=== PATIENT | female | born 1960 | race Caucasian/White ===

== ENCOUNTER 2016-12-04 07:00 | Day surgery (SDC) | payer OTHER ==
[2016-12-04] VITALS (12 sets, daily range): BP systolic 112–128; BP diastolic 67–82; PULSE 74–88; RESP 13–17; O2SAT 93–96
[~2016-12-04] VITALS: Ht 154.9 cm; Wt 83.7 kg
[~2016-12-04 07:00] MED LIST: ASCO-294 PO; BUPR150T12 PO; CALCIUM, MAG, ZINC PO; CHOL200025 PO; CeFAZolin Inj 2 GM in IV Premix 1 EACH IV ONE; FURO-129 PO; LORA10CA PO; Lactated Ringer's 1,000 ML IV ONE; MULT-1018 PO
--- NOTE | 2016-12-04 07:25 | PCM.HPANE ---
Patient Data Date of Service: Dec 04, 2016 Surgeon Admitting Provider: Attending Provider:Albert Alonzo MD Primary Care Physician:Frankie Paul DO Other Provider:Gely Ball Anesthesia Reason for Visit Malignant Ascites Ht/WT & BMI Height (Feet): 5 Height (Inches): 1.00 Weight (Kilograms): 83.7 Body Mass Index 34.00 Allergies Coded Allergies: No Known Drug Allergies (Verified Allergy, Unknown, 12/03/16) Past Anesthesia History Anesthesia History: Denies:: Abnormal Airway, Anesthesia Reactions, Difficult Intubation, Fam Anesthesia Reaction, Fam Malignant Hypertherm, Malignant Hyperthermia Diabetes History Hx Diabetes?: No MRSA MRSA: No Medications Home Meds Incl Beta Harshal: No Reported Medications Furosemide (Lasix)20 Mg Qacmle47 Mg PO BID PRN prn 30 Days Ref 0 12/03/16 Cholecalciferol (Vitamin D3) (Vitamin D3)2,000 Unit Tablet2,000 Unit PO DAILY 12/02/16 [Calcium, Mag, Zinc] No Conflict Check1 Tab PO DAILY 12/02/16 Bupropion ER 150 Mg Tablet.er150 Mg PO DAILY Ref 0 11/25/16 Loratadine (Claritin)10 Mg Snppldm72 Mg PO DAILY Ref 0 11/26/15 Discontinued Reported Medications Ascorbate Calcium (Vitamin C)500 Mg Sieifa102 Mg PO DAILY 12/03/16 Multivitamin (Multi Vitamin Daily)1 Each Tablet1 Each PO DAILY 30 Days Ref 0 12/03/16 Cyanocobalamin (Vitamin B-12) (Vitamin B12)5,000 Mcg Tab.rapdis5,000 Mcg PO OCC 12/02/16 [Vitamin B12] No Conflict Check1 Tab SL Daily 11/25/16 [Calcium ] No Conflict Check1 Tab PO DAILY 11/25/16 Fluticasone Propionate (Flonase Allergy Relief)50 Mcg/Actuation [place].susp9.9 Ml NS 11/26/15 Multivitamin (Multivitamins)1 Each Capsule1 Each PO 11/26/15 History History of ENT Problems?: Yes HEENT History: Positive for:: Sinus Problem (SEASONAL ALLERGIES) Denies:: Abnormal Airway Difficult Intubation Dysphagia Hearing Problem Hx of Heart Problems?: No Cardiovascular History: Denies:: AICD Atrial Fibrillation Chest Pain Heart Murmur Hypertension Pacemaker Rheumatic Fever Thrombophlebitis Hx of Respiratory Problem?: Yes Respiratory History: Positive for:: Asthma (CHILDHOOD) Dyspnea Use of C-PAP Machine (MILDLY CHRISTIANO+ AWAITING CPAP SLEEP STUDY 01/2016) Denies:: COPD Cough Emphysema Hemoptysis Pneumonia Tuberculosis Hx Neurologic Problems?: Yes Neurological History: Denies:: Alzheimer's Disease CVA Dementia Dizziness Headaches Seizures Hx of GI Problems?: Yes Gastrointestinal History: Positive for:: Heartburn Denies:: Cirrhosis Diverticulitis Gastroesphageal Reflux Hepatitis Hiatal Hernia Rectal Bleeding Other GI Pertinent History: MALIGNANT ASCITES=CURRENT PROBLEM HX OF PARACENTSIS X3-4 IN LAST 1-2 MONTHS (3.5L REMOVED W/ 1ST PROCEDURE) Hx of Problems?: No Genitourinary History: Denies:: HX of Hemodialysis Kidney Stones Urinary Tract Infection Female Hx: Positive for:: Problems with Breasts? (S/P LT BREAST PARTIAL MASTECTOMY FOR CA) Denies:: Currently (LAST MENSES 14 MONTHS AGO) Endometriosis Pelvic Inflammatory Skin History: Denies:: History Skin Disorders? Pressure Ulcers Hx Musculoskeletal Problems?: Yes Musculoskeletal History: Positive for:: Musculoskeletal Trauma (HX RT ELBOW INJURY) Denies:: Back Injury Joint Replacement Hx of Psycho/Social Problems?: Yes Psycho Social History: Positive for:: Hx Depression Denies:: Anxiety Bipolar Disorder Hx Surgeries?: Yes (PARACENTESIS (MULT.),D&C,LT BREAST PARTIAL MASTECTOMY) Hx Any Other Health Problems?: Yes Other History: Positive for:: Cancer (LEFT BREAST CA 2006) Hospitalization Denies:: Endocrine Disease Thyroid Disease (??HX OF) History Blood Transfusions: Denies:: Blood Transfusions Hx Diabetes: No Hx Alcohol Use: NoHx Substance Use: No Smoking Status: Never Smoker Have You Smoked inLast 12 mo: No Stop/Bang S-Snoring: Do You Snore Loudly: No T-Tired: feel tired, fatigued: Yes O-Obsered: Observed not breath: Yes P-Blood Pressure: treated: No B- Body Mass Index > 35 kg/m2: No A- Age over 50: Yes N- Neck Large Circumference: No G- Gender Male: No CHRISTIANO Total Score: 3 CHRISTIANO Category 4 OutPt Procedure: Yes Risk Assessment Category Category 1A: Patient has history of documented sleep apnea, and HAS NOT received any narcotic, sedative or anesthesia administration during this stay. Category 1B: Patient has history of documented sleep apnea, and HAS received any narcotic , sedative or anesthesia administration during this stay Category 2: Patient has SUSPECTED Obstructive Sleep Apnea, and HAS received any narcotic , sedative or anesthesia administration during this stay. Category 3: Patient has SUSPECTED Obstructive Sleep Apnea and HAS NOT received narcotic, sedative or anesthesia administration during this stay. Category 4: Outpatient in Procedural Areas with known sleep apnea or who screen positive for High Risk via the STOP/BANG questionnaire. Exam Exam Vital Signs Vital Signs Date Time Temp Pulse Resp B/P Pulse Ox O2 Delivery O2 Flow Rate FiO2 12/04/16 05:56 35.7 77 14 128/82 95 Room Air General Appearance: Alert, Oriented X3, Cooperative, No Acute Distress HEENT/AIRWAY: MP 2 Lungs: Clear to Auscultation, Normal Air Movement Heart: Exam Unremarkable, Regular Rate/Rhythm, No Murmurs/Rubs/Gallops Meds/Labs/Diagnostics Admission Meds Current Medications Lactated Ringer's (Lr) 1,000 ml @ ud STK-MED ONCE IV Last administered on 12/04t 06:18; Start 12/04/16 at 06:18; Stop 12/04/16 at 06:19; Status DC Plan Impression Patient chart reviewed, patient interviewed and anesthestic plan with risks, benefits, and alternatives discussed, and informed consent obtained. NPO Status: 12/03@1800, SIP OF WATER 2200 ASA Physical Status: ASA3 Severe Disease Anesthetic Plan: GA Bene/Risks/Altern/Consents: Yes HP Complete Prior to Induction: Yes Aeb Mera MD Dec 04, 2016 07:25
[2016-12-04] MEDS ORDERED: Bupivacaine-MPF 0.5% 30 mL Inj INFILTRATE ONE (07:31)
[2016-12-04] MEDS ORDERED: HYDROmorphone 1 mg/mL Inj IVPUSH PRN (08:00)
[2016-12-04] MEDS ORDERED: Lactated Ringer's 1,000 ML IV SCH (08:00)
[2016-12-04] MEDS ORDERED: MetoCLOpramide 5 mg/mL 2 mL Inj IVPUSH PRN (08:00)
[2016-12-04] MEDS ORDERED: Phenylephrine 10,000 mCg/mL Inj IVPUSH PRN (08:00)
[2016-12-04] MEDS ORDERED: hydrALAZINE 20 mg/mL Inj IVPUSH PRN (08:00)
[2016-12-04] MEDS ORDERED: EPHEDrine Sulfate 50 mg/mL Inj IVPUSH PRN (08:00)
[2016-12-04] MEDS ORDERED: fentaNYL-PF 50 mCg/mL 2 mL Inj IVPUSH PRN (08:00)
[2016-12-04] MEDS ORDERED: Atropine 0.4 mg/mL Inj IVPUSH PRN (08:00)
[2016-12-04] MEDS ORDERED: Lactated Ringer's 500 ML IV PRN (08:00)
[2016-12-04] MEDS ORDERED: Labetalol 5 mg/mL 4 mL Inj IV PRN (08:00)
[2016-12-04] MEDS ORDERED: Ondansetron 2 mg/mL 2 mL Inj IVPUSH PRN (08:00)
[2016-12-04] MEDS ORDERED: Ondansetron 2 mg/mL 2 mL Inj ONE (09:02)
[2016-12-04] MEDS ORDERED: Propofol 10,000 mCg/mL 20 mL Inj ONE (09:02)
[2016-12-04] MEDS ORDERED: fentaNYL-PF 50 mCg/mL 2 mL Inj ONE (09:02)
[2016-12-04] MEDS ORDERED: Lidocaine PF 1% 30 mL Inj ONE (09:02)
[2016-12-04] MEDS ORDERED: Rocuronium 10 mg/mL 5 mL Inj ONE (09:02)
[2016-12-04] MEDS ORDERED: Dexamethasone 4 mg/mL Inj ONE (09:02)
--- NOTE | 2016-12-04 10:11 | PCM.ANEP1 ---
Post Anesthesia Phase 1 PACU Phase 1 Assessment Date of Service: Dec 04, 2016 Vital Signs 36.2 123/71 88 15 96% RA Anesthetic Administered: GA Level of Alertness: Sleepy, easy to arouse CABRAL's with Equal Strength: Yes Pain: No Nausea or Vomiting: No Oxygen Delivery: Room Air Lungs: Clear to Auscultation, Normal Air Movement Abe Mera MD Dec 04, 2016 10:11
--- NOTE | 2016-12-04 10:24 | PCM.SURGPO ---
Immediate Operative Note Date of Surgery: Dec 04, 2016 Pre Operative Diagnosis Malignant ascites Post Operative Diagnosis Peritoneal Carcinomatosis, Omental caking Procedure Diagnostic laparoscopy with biopsies Tunneled L Subclavian catheter placement with port, Fluoroscopy Surgeon and Vaccine Customer Representative Surgeon: Albert Alonzo MD Vaccine Customer Representative: Findings Carcinomatosis - pelvis, dome of the diaphragm etx. Omental caking Complications There were no periprocedural complications identified. Surgical Specimen Removed: Yes Specimen sent to Pathology: Yes Anesthetic Administered: GA Grafts, Implants: Implants-See Implant Record Output, Estimated Blood Loss: 5 Blood Admin during surgery: No Attending Statement Laboratory Specialist listed was medically necessary for the successful completion of the operation Albert Alonzo MD Dec 04, 2016 10:24
--- NOTE | 2016-12-04 13:19 | DRSVH ---
PROCEDURE: X-RAY CHEST ONE VIEW, PORTABLE ([id number]) INDICATIONS: Port Placement TECHNIQUE: One view of the chest was acquired. COMPARISON: [facility], , [place] GUIDED PARACENTESIS, 11/25/2016, 13:09. FINDINGS: Surgical changes and devices: Left chest port has been placed tip projected over the lower SVC. Lungs and pleura: No pleural effusions or pneumothorax. Lungs are clear. Mediastinum: Mediastinal contours appear normal. Heart size is normal. Bones and chest wall: No suspicious bony lesions. Overlying soft tissues appear unremarkable. IMPRESSION: Placement of chest port. Dictated by: Micah Rosales RR Interpreted: Angelita Shaikh MD on 12/04/2016 at 13:18 Transcribed by: SY on 12/04/2016 at 13:19 Approved by: Angelita Shaikh M.D. on 12/04/2016 at 21:26
--- NOTE | 2016-12-04 13:52 | PCM.ANEP2 ---
Post Anesthesia Evaluation ASA/CMS Post Anesthesia Date of Service: Dec 04, 2016 VS in Patient's Normal Range?: Yes Resp Stable; Airway Patent?: Yes CV Function & Hydration Stable: Yes Mental Status Recovered?: Yes Pain control Satisfactory?: Yes N/V Control Satisfactory?: Yes Abe Mera MD Dec 04, 2016 13:52
--- NOTE | 2016-12-08 12:13 | OP ---
[address] [address] OPERATIVE REPORT PATIENT: SALLY SO : 1960 MR#: [id number] ADMIT: 12/04/2016 JOB ID: [id number] DATE OF SURGERY: 12/04/2016 PREOPERATIVE DIAGNOSIS(ES): Ascites, presumably malignant. POSTOPERATIVE DIAGNOSIS(ES): 1. Peritoneal carcinomatosis. 2. Omental caking. OPERATION PERFORMED: 1. Diagnostic laparoscopy. 2. Biopsy of peritoneal nodules in the omentum. 3. Evacuation of malignant ascites. 4. Tunneled left subclavian central venous catheter placement through subcutaneous port. 5. Intraoperative fluoroscopy. SURGEON: Albert Alonzo MD. ASSISTANTS: Lucy Dai MS3 and Chelsea Ventura DO, R1. INDICATIONS: The patient is a 26-year-old lady who presented to Dr. Medina from [facility] with recurrent ascites, which was thought to be malignant but cytology continued to be negative. I saw her in consultation at the request of Dr. Medina for obtaining a diagnosis and port placement. After discussing the risks, benefits and alternatives, she is here today. PROCEDURE DETAILS: She was placed in supine position. Underwent smooth induction of general anesthesia. Abdomen, chest and neck were prepped and draped in the usual sterile fashion. Surgical time-out was undertaken using safety checklist, and all were in agreement. I began by making an infraumbilical incision and entered the abdomen using open Chavo technique. Immediately, I encountered large volume ascites, which we evacuated and collected for cytology. I then placed two additional 5-mm ports over the lateral aspect of the abdomen and identified carcinomatosis with thick omental caking, omentum almost replaced with tumor. I first took a number of peritoneal nodules in the pelvis bluntly with a DeBakey grasper and sent them for frozen section. I then took pieces of the omentum, again removed bluntly and sharply with cautery, and sent them to Pathology in a separate specimen. After checking with pathologist, Dr. Ladd, to make sure we have adequate tissue to document her malignancy, I ensured hemostasis and closed the umbilical port fascia with [id number] 0 Vicryl suture. The skin was reapproximated with 4-0 Monocryl. Steri-Strips were applied. Then, I directed my attention to the chest after exposing the chest and neck. I accessed the left subclavian vein under Seldinger technique, and placed a wire and confirmed venous placement with intraoperative fluoroscopy. I then measured the required length of the catheter, then made a pocket over the left pectoralis and anchored the port to the pectoralis fascia. I attached the catheter to the port and cut it to the required length and then dilated the wire with an introducer dilator. Then, advanced the catheter through the introducer sheath and removed the tear-away sheath. I then aspirated and flushed the catheter, which was working well, and flushed it with 100 units/mL of heparin. Then, documented the final placement of the catheter in the port with fluoroscopy. I then closed the skin with 4-0 Monocryl. I applied Dermabond as a dressing for the port. The patient was recovered from anesthesia and was taken to the recovery room in a stable condition. KALPESH
[2016-12-10] MEDS ORDERED: MULT-1018 PO (07:49)
[2016-12-10] MEDS ORDERED: ASCO500C6 PO (07:49)
[2016-12-12] MEDS ORDERED: CYAN50008 PO (08:55)
[2016-12-12] MEDS ORDERED: ACET-171 PO (08:55)
[2016-12-17] MEDS ORDERED: POLY17PO6 PO (08:52)
[2016-12-17] MEDS ORDERED: ONDA8TAB7 PO (08:52)
[2016-12-17] MEDS ORDERED: PROC-4 PO (08:52)
[2016-12-17] MEDS ORDERED: OXYC5TAB72 PO (08:52)
[2016-12-25] MEDS ORDERED: SENN-133 PO (10:10)
[2016-12-25] MEDS ORDERED: MORP15TA PO (10:10)
[2016-12-25] MEDS ORDERED: HYDR2TAB28 PO (10:10)
[2016-12-25] MEDS ORDERED: LORA0.5T PO (10:10)
[2016-12-25] MEDS ORDERED: OMEP40CA36 PO (10:10)
[2016-12-25] MEDS ORDERED: ONDA4TAB6 PO (10:10)
== END 2016-12-04 23:59 | disposition home or self-care (01) ==
LOC: SAS 07:00
PROVIDERS: ATTEND Student in an Organized Health Care Education/Training Program
DX: C48.2 Malignant neoplasm of peritoneum, unspecified (principal); F41.9 Anxiety disorder, unspecified; F32.9 Major depressive disorder, single episode, unspecified; G47.33 Obstructive sleep apnea (adult) (pediatric); J45.909 Unspecified asthma, uncomplicated; J30.2 Other seasonal allergic rhinitis; Z85.3 Personal history of malignant neoplasm of breast; Z92.3 Personal history of irradiation
CPT/HCPCS: 36561; 49321; 71010; 77001; C1788; J0690; J1100; J1642; J2250; J2405; J3010; J7120

== ENCOUNTER 2016-12-11 07:10 | Day surgery (SDC) | payer OTHER ==
[~2016-12-11] VITALS: Ht 154.9 cm; Wt 79.8 kg
[~2016-12-11 07:10] MED LIST changes: -ASCO-294 PO; +ASCO500C6 PO; -BUPR150T12 PO; -CeFAZolin Inj 2 GM in IV Premix 1 EACH IV ONE; -FURO-129 PO; -Lactated Ringer's 1,000 ML IV ONE; +Sodium Chloride LOK Flush 10 mL Syringe IV PRN; +fentaNYL-PF 50 mCg/mL 2 mL Inj IVPUSH PRN
[2016-12-11] MEDS ORDERED: FUR20 PO (07:34)
[2016-12-11] MEDS ORDERED: BUPR75TA10 PO (07:34)
[2016-12-11 07:45] VITALS: BP 123/76; PULSE 74; RESP 16; O2SAT 98
[2016-12-11] MEDS: 0.9% Sodium Chloride 1,000 ML IV SCH ×2 (08:03→08:34)
[2016-12-11] MEDS ORDERED: ACET325C PO (08:05)
[2016-12-11 08:43] VITALS: BP 129/76; PULSE 83; RESP 15; O2SAT 95
[2016-12-11 08:53] VITALS: BP 122/70; PULSE 84; RESP 14; O2SAT 98
[2016-12-11 09:03] VITALS: BP 132/70; PULSE 83; RESP 14; O2SAT 98
--- NOTE | 2016-12-11 22:26 | ENDO ---
[address] [address] ENDOSCOPY PROCEDURE PATIENT: SALLY SO : 1960 MR#: [id number] ADMIT: 12/11/2016 JOB ID: [id number] DATE OF SERVICE: 12/11/2016 PREOPERATIVE DIAGNOSIS: Peritoneal carcinomatosis. POSTOPERATIVE DIAGNOSES: 1. Small distal esophageal ulcer. 2. Probable external compression of gastric fundus. OPERATION: Upper endoscopy with biopsy. SURGEON: Mansoor Dominguez MD INDICATIONS: A 56-year-old female, who has recently been diagnosed with peritoneal carcinomatosis. Biopsies have suggested an upper gastrointestinal source. I was asked by Dr. Alonzo to perform an upper endoscopy. FINDINGS: The esophageal mucosa was normal down to 36 cm from the incisors. At that point, that was the location of the GE junction, but also there was a small ulcer right at the GE junction that was biopsied. There was no fungating mass. In the stomach, retroflex views revealed a Hill grade II flap valve. There is no gross evidence of tumor. The gastric mucosa appeared normal; however, the gastric fundus would not distend completely, and on pushing on it with biopsy forceps, it seemed firm and non distensible but the mucosa appeared normal. Multiple biopsies of the mucosa were taken. Distally in the stomach, the antrum grossly appeared normal and normally distensible. It was biopsied. The pylorus was normal. The duodenum into the third portion of the duodenum appeared normal. No biopsies were taken below the gastric antrum. DESCRIPTION OF PROCEDURE: The procedure and sedation plan was discussed with the patient and nursing staff, and a procedural time-out was held. She had gargled viscous Xylocaine. She received 5 mg of Versed and 100 mcg of fentanyl. The Olympus GIF-H190 video endoscope was passed transorally, advanced into the third portion of the stomach, withdrawn with results stated above. Biopsies were obtained of the gastric antrum, which was grossly normal, and then of the fundus, which appeared to be compressed, although externally. There were no gastric ulcerations or masses. Then again biopsies of the gastroesophageal junction as stated above with that ulcer being biopsied. The patient tolerated the procedure well. The patient has an appointment tomorrow with Dr. Medina and next week with Dr. Alonzo.
[2016-12-12] MEDS ORDERED: CYAN50008 PO (08:55)
[2016-12-12] MEDS ORDERED: ACET-171 PO (08:55)
--- NOTE | 2016-12-12 15:50 | PATH ---
SURGICAL PATHOLOGY Attending Physician:Tu Pelayo CASE STATUS: Signed Out PATIENT NAME: Weston Jacobson PID: [id number] : 1960 DATE COLLECTED:12/11/2016 18:17 SPECIMEN: 1: Stomach, Antrum, Biopsy 2: Stomach, Biopsy 3: Esophagus, Biopsy CLINICAL HISTORY: 1). ANTRUM BIOPSY 2). FUNDUS BIOPSY 3). GASTRO-ESOPHAGEAL JUNCTION BIOPSY FINAL DIAGNOSIS: 1.ANTRUM BIOPSY: MILD CHRONIC GASTRITIS INVOLVING ANTRAL AND SMALL AMOUNT OF FUNDIC MUCOSA. Negative for evidence of Helicobacter. Negative for intestinal metaplasia. Negative for dysplasia and malignancy. 2.FUNDUS BIOPSY: DIFFUSE MILD CHRONIC GASTRITIS INVOLVING FUNDIC MUCOSA. Negative for evidence of Helicobacter. Negative for intestinal metaplasia. Negative for dysplasia and malignancy. 3.GASTROESOPHAGEAL JUNCTION BIOPSY: SQUAMOUS MUCOSA AND GASTRIC CARDIA-TYPE MUCOSA NEGATIVE FOR SPECIALIZED METAPLASIA OF [place]' S-TYPE ESOPHAGUS. Negative for dysplasia and malignancy. Scattered eosinophils present within squamous epithelium consistent with changes of chronic reflux. ICD10 code K29.70 GROSS DESCRIPTION: The specimen is received in three formalin filled containers labeled with the patient's name. 1). The specimen is sublabeled "antrum" and consists of 2 portions of tissue which aggregate to 0.4 x 0.4 x 0.2 CM. The specimen is entirely submitted in cassette 1A. 2). The specimen is sublabeled "fundus" and consists of multiple portions of tissue which aggregate to 0.6 x 0.6 x 0.2 CM. The specimen is entirely submitted in cassette 2A. 3). The specimen is sublabeled " GEJ " and consists of 5 portions of tissue which aggregate to 0.4 x 0.4 x 0.3 CM. The specimen is entirely submitted in cassette 3A. 12/11/2016 [facility] MICRO DESCRIPTION: See diagnosis. ICD-9 CODES: CPT CODES: 1: 55924 2: 94992 3: 09217 Electronically Signed Out Cornell Cerrato MD [facility] [address] [facility], [place] [address] Technical component performed at [facility], [facility] [address], [place], [address]
[2016-12-17] MEDS ORDERED: POLY17PO6 PO (08:52)
[2016-12-17] MEDS ORDERED: OXYC5TAB72 PO (08:52)
[2016-12-17] MEDS ORDERED: PROC-4 PO (08:52)
[2016-12-17] MEDS ORDERED: ONDA8TAB7 PO (08:52)
[2016-12-25] MEDS ORDERED: LORA0.5T PO (10:10)
[2016-12-25] MEDS ORDERED: OMEP40CA36 PO (10:10)
[2016-12-25] MEDS ORDERED: SENN-133 PO (10:10)
[2016-12-25] MEDS ORDERED: MORP15TA PO (10:10)
[2016-12-25] MEDS ORDERED: HYDR2TAB28 PO (10:10)
[2016-12-25] MEDS ORDERED: ONDA4TAB6 PO (10:10)
== END 2016-12-11 23:59 | disposition home or self-care (01) ==
LOC: END 07:10
PROVIDERS: ATTEND Surgery
DX: K29.50 Unspecified chronic gastritis without bleeding (principal); K22.70 Barrett's esophagus without dysplasia; K21.9 Gastro-esophageal reflux disease without esophagitis; C78.6 Secondary malignant neoplasm of retroperitoneum and peritoneum; G47.33 Obstructive sleep apnea (adult) (pediatric); F41.8 Other specified anxiety disorders; J45.909 Unspecified asthma, uncomplicated; Z85.3 Personal history of malignant neoplasm of breast; Z92.3 Personal history of irradiation; Z90.12 Acquired absence of left breast and nipple
CPT/HCPCS: 43239; G0500; J7030

== ENCOUNTER 2016-12-17 15:09 | Emergency (ER) | payer OTHER ==
[~2016-12-17] VITALS: Ht 154.9 cm; Wt 81.8 kg
[~2016-12-17 15:09] MED LIST changes: +ACET-171 PO; +BUPR75TA10 PO; +CYAN50008 PO; +FUR20 PO; +ONDA8TAB7 PO; +OXYC5TAB72 PO; +POLY17PO6 PO; +PROC-4 PO; -Sodium Chloride LOK Flush 10 mL Syringe IV PRN; -fentaNYL-PF 50 mCg/mL 2 mL Inj IVPUSH PRN
--- NOTE | 2016-12-17 15:16 | ED.REPORT ---
HPI-Neurologic Deficit Date of Service Dec 17, 2016 ED Provider: Woodrow De Guzman DO Pt is a 56 y/o female w/ a hx of pancreatic cancer on chemotherapy (Folfirinox) , presenting to the ED via EMS w/ her c/o rapidly improving left lower arm numbness and slurred speech onset 14:15 today directly after chemotherapy infusion. At time of interview, she states her speech is "a little off" and she is 90% back to baseline. The patient was at her chemotherapy appointment today and directly following the infusion of Folfirinox, she developed left arm numbness and slurred speech. Her oncologist Dr. Medina does not believe this is a medication side-effect. She describes her slurred speech as "lip heaviness and tongue enlargement" and her arm numbness as "twitching and heaviness". She later states that her right arm was numb with similar character of the left at time of onset with associated flushed sensation and diaphoresis. She believes her symptoms may be attributed to adverse medication reaction. Her confirms that her speech is different from baseline in the sense that she now has a mild lisp. Pt denies CALDERON, CP, SOB, vision change, receptive aphasia, abdominal pain, vomiting. Nursing Notes Stated Complaint: CVA Nursing Notes Reviewed: Yes Allergies: Coded Allergies: No Known Drug Allergies (Verified Allergy, Unknown, 12/03/16) Scheduled Bupropion (Bupropion) 75 Mg Tablet 150 MG PO HS Furosemide (Furosemide) 20 Mg Tab 20 MG PO DAILY Loratadine (Claritin) 10 Mg Capsule 10 MG PO DAILY Polyethylene Glycol 3350 (Miralax) 17 Gm Powd.pack 17 GM PO prn Prochlorperazine Maleate (Compazine) 10 Mg Tablet 10 MG PO q6hrs prn Scheduled PRN Ondansetron ODT (Zofran ODT) 8 Mg Tablet 8 MG PO q8hrs prn PRN PRN For Nausea oxyCODONE (oxyCODONE) 5 Mg Tablet 5-10 MG PO q6hrs PRN PRN For Pain General Time Seen by Provider: 15:15 Chief Complaint Numbness arm... (Left), Slurred speech Hx Obtained From: Patient, EMS Arrived By: Ambulance Sudden in Onset?: Yes Onset Occurred: 1 - 4 hours ago Symptom Duration: Since onset Progression Since Onset: Rapidly improving Severity: Current: No pain currently Severity: Maximum: No pain Risk Factors TPA Administration/Criteria Stroke Thrombolytic Therapy : TPA Considered: Yes NIH Stroke Scale Level of Consciousness: Alert and responsive (0) Ask Month & Age: Both questions right (0) Open/Close Eyes/Hand Top Bottom Attaching Machine Operator: Performs both tasks (0) Horizontal EO Movements: None (0) Visual Goins: No visual loss (0) Facial Palsy: Normal symmetry (0) Right Arm Motor Drift (10s): No drift 10 sec (0) Left Arm Motor Drift (10s): No drift 10 sec (0) Right Leg Motor Drift (5s): No drift 5 sec (0) Left Leg Motor Drift (5s): No drift 5 sec (0) Limb Ataxia FNF/Heel-Yu: No ataxia (0) Sensation (Arms/Legs/Face): No sensory loss (0) Language Aphasia: No aphasia, normal (0) Dysarthria: Slurring intelligible (1) Extinction/Inattention: No exctinct/inattent (0) NIHSS Score: 1 Time NIHSS Performed: 15:26 Date NIHSS Performed: Dec 17, 2016 Past Medical History Past Medical History Notes: Oncologist: Dr. Medina Past Medical History GERD, left breast CA 2007 s/p partial mastectomy Pancreatic cancer Depression Past Surgical History Partial left breast mastectomy Exploratory abdominal surgery Port-a-cath D&C Smoking History Never Smoker Social History Other Social History: Ambulatory Status Independent Review of Systems Constitutional: Denies: Chills, Fever Respiratory: Denies: Non-productive cough, Shortness of breath Cardiovascular: Denies: Chest pain, Dyspnea on exertion GI: Denies: Abdominal pain, Nausea, Vomiting Skin: Reports Diaphoresis, Denies Rash, Denies Swelling Neurologic: Reports: Focal weakness, Numbness, Slurred speech, Denies: Change LOC, Confusion, Headache, Problem walking, Seizure, Shaking, Spinning sensation, Syncope, Unable to speak, Vision change Complete sys rev & neg: except as marked. Physical Exam Initial Vital Signs Vital Signs (First) Date Time Temp Pulse Resp B/P Pulse Ox O2 Delivery O2 Flow Rate FiO2 12/17/16 15:32 103 18 148/83 96 Room Air Initial VS: Reviewed, Vital signs abnormal ENT: Mucous membranes moist, Conjunctiva normal, No scleral icterus Neck: Supple, Full range of motion Abdomen / GI: Soft, Non-tender, No guarding, No rebound, No distention Extremities: Vascular intact, Neuro intact, No swelling, No tenderness Skin: Warm, Dry, No cyanosis Psychiatric: Mood/affect normal, Behavior normal, Normal thought content General/Constitutional: Awake, Alert, No acute distress, Cooperative, Not toxic appearing Head / Eyes: Atraumatic, Normocephalic, PERRL, EOMI, No nystagmus Respiratory / Chest: Atraumatic, Breath sounds NL, Breath sounds = bilat, No respiratory distress, No rales, No rhonchi, No wheezing, No retractions, No stridor, No chest tenderness, No chest wall deformity, No crepitus Cardiovascular: Heart rate NL, Regular rhythm, Heart sounds NL, No gallop, No murmurs, No rubs, Cap refill not delayed, Peripheral circulation NL Neurologic: Oriented X3, No motor deficits, No sensory deficits, CN II - XII intact, Cerebellar NL, Memory NL NIH = 1 for slurred speech Interpretation & Diagnostics Interpretation & Diagnostics: MRI brain w/out contrast: IMPRESSION: 1. No acute intracranial findings. Specifically, no acute infarct. 2. No suspicious mass lesions to suggest intracranial metastasis. However, if further characterization is warranted, MRI of the brain with contrast may be helpful. Dictated by: Lucy Martinez M.D. on 12/17/2016 at 17:28 Approved by: Lucy Martinez M.D. on 12/17/2016 at 17:31 Lab Results Interpretation Result Diagram: 12/17/16 1543 12/17/16 1543 Test 12/17/16 15:43 White Blood Count 7.0th/mm3 (3.8-10.1) Red Blood Count 4.00mil/mm3 (3.90-5.20) Hemoglobin 11.5g/dL (12.0-15.6) Hematocrit 35.4% (35.0-46.0) Mean Corpuscular Volume 88.5fL (81-100) Mean Corpuscular Hemoglobin 28.8pg (27.0-35.0) Mean Corpuscular Hemoglobin Concent 32.5% (32.0-37.0) Red Cell Distribution Width 13.2% (12.3-15.4) Platelet Count 207bil/L (150-400) Neutrophils (%) (Auto) 93.8% (40-74) Lymphocytes (%) (Auto) 5.6% (14-46) Monocytes (%) (Auto) 0.3% (4-12) Eosinophils (%) (Auto) 0.1% (0-5) Basophils (%) (Auto) 0.1% (0-3) Prothrombin Time 10.6sec (8.1-12.5) Prothromb Time International Ratio 0.99ratio Activated Partial Thromboplast Time 26.3sec (22.8-33.0) Sodium Level 136mEq/L (134-144) Potassium Level 3.8mEq/L (3.5-5.2) Chloride Level 97mEq/L (97-108) Carbon Dioxide Level 22mmol/L (18-29) Blood Urea Nitrogen 7mg/dL (6-24) Creatinine 0.57mg/dL (0.57-1.00) Estimat Glomerular Filtration Rate 157mL/min (>59) Glucose Level 160mg/dL (60-99) Calcium Level 9.6mg/dL (8.5-10.1) Total Bilirubin 0.2mg/dL (0.0-1.2) Aspartate Amino Transf (AST/SGOT) 25U/L (0-50) Alanine Aminotransferase (ALT/SGPT) 22U/L (0-32) Alkaline Phosphatase 70U/L (25-150) Troponin T < 0.010ug/L (0.0-0.011) Total Protein 6.8g/dL (6.4-8.4) Albumin 3.6g/dL (3.4-5.0) Hold Morfin Top Tube Received (Received) ECG Interpretation Time: 16:10 Interpreted by: ED physician Normal ECG Interpretation: Normal ECG w/ rate of... (89), Normal rate, Normal sinus rhythm, No acute ischemic changes, Normal QRS, Normal axis, Normal intervals, Adequate tracing X-Ray Chest Interpretation Chest Xray Interpretation: IMPRESSION: 1. Left basilar atelectasis. 2. Small right pleural effusion. Dictated by: Juan Jose Lcuas M.D. on 12/17/2016 at 15:56 Approved by: Juan Jose Lucas M.D. on 12/17/2016 at 15:57 View: Portable, 1 view Interpretation / Wet Read by: Interpret - Radiologist CT Head Interpretation IMPRESSION: 1. No acute intracranial abnormalities. This study fulfills neurological imaging criteria for inclusion or exclusion of acute stroke therapies based on available published neurological imaging guidelines. Dictated by: Juan Jose Lucas M.D. on 12/17/2016 at 15:24 Approved by: Juan Jose Lucas M.D. on 12/17/2016 at 15:25 Study: Head CT no contrast Interpretation / Wet Read by: Interpret - Radiologist Re-Eval/Medical Decision Med Decision/Clinical Course Symptoms sound like they are directly correlated with the patient's infusion of chemotherapeutic medications. The symptoms were bilateral, and have fully resolved. I do not think this represents a stroke, is also very unlikely that this represents a TIA. MRI is negative. I have discussed my thought process with both the patient and her oncologist and it seems that the patient understands and agrees. She is instructed to start aspirin and was given extensive return and follow-up precautions including not ignoring stroke like symptoms and returning to the ER if these occur. Source of Hx: Old records, EMS Re-Evaluation/Progress : Time of Eval: 16:29 Re-Evaluation/Progress Note: Pt rechecked. Symptoms have resolved. Informed pt of need for MRI while in the ED. She agrees with plan. Consultation : Referral / Consult Name: Nicko Rodriguez MD Call Returned at: 18:10 [facility] Therapist: Agrees with eval, Agrees with plan Note: Discussed case with patient's oncologist. He believes it is ok to resume meds and ok to discharge. Counseled Regarding: Diagnosis, Lab results, Need for follow-up, When/why to return to ED Discharge & Departure Impression: Primary Impression: Adverse reaction to antineoplastic drug Encounter type: initial encounter Qualified Code: T45.1X5A - Adverse effect of antineoplastic and immunosuppressive drugs, initial encounter Disposition: Home Discharge Condition All VS Reviewed: Yes Condition: Stable Additional Instructions: It seems that your symptoms are likely related to this medication. It is unlikely that you had a TIA however given that your symptoms or on both the right and left side. You should take an aspirin daily. Call your oncologist in the morning for further treatment. Referrals: Frankie Paul DO (PCP) CarolNicko Chang MD Scribe Attestation Portions of this note were transcribed by Kobe Bower. I, Dr. De Guzman, personally performed the history, physical exam and medical decision-making; I reviewed and confirmed the accuracy of the information in the transcribed note. Signed by Majo Pacheco, 12/17/16 - [phone] copies to: Nicko Rodriguez MD; Frankie Paul Timothy S DO Dec 17, 2016 15:16 KOBE BOWER Dec 17, 2016 15:18
[2016-12-17] MEDS ORDERED: 0.9% Sodium Chloride 1,000 ML IV ONE (15:17)
--- NOTE | 2016-12-17 15:26 | DRSVH ---
PROCEDURE: CT BRAIN (TPA) ([id number]) INDICATIONS: cva TECHNIQUE: Noncontrast 4.5 mm thick angled axial sections acquired from the foramen magnum to the vertex, with c oronal reformats. COMPARISON: None. FINDINGS: Image quality: Excellent. CSF spaces: Basal cisterns are patent. No extra-axial fluid collections. Ventricles are normal in size and shape. Brain: No midline shift. No intracranial masses or hemorrhage. Velasco-white matter interface is norm al. Skull and face: Calvarium and visualized facial bones are intact, without suspicious lesions. Sinuses: Visualized sinuses and mastoids are clear. IMPRESSION: 1. No acute intracranial abnormalities. This study fulfills neurological imaging criteria for inclusion or exclusion of acute stroke therapie s based on available published neurological imaging guidelines. Dictated by: Juan Jose Lucas M.D. on 12/17/2016 at 15:24 Approved by: Juan Jose Lucas M.D. on 12/17/2016 at 15:25
[2016-12-17 15:32] VITALS: BP 148/83; PULSE 103; RESP 18; O2SAT 96
[2016-12-17 15:51] LABS: BASOPHILS % (AUTO) 0.1 % (0-3); EOSINOPHILS % (AUTO) 0.1 % (0-5); MONOCYTES % (AUTO) 0.3 % (4-12); Mean Corpuscular Hemoglobin 28.8 pg (27.0-35.0); Mean Corpuscular Volume 88.5 fL (81-100); NEUTROPHILS % (AUTO) 93.8 % (40-74); Platelet Count 207 bil/L (150-400)
--- NOTE | 2016-12-17 15:58 | DRSVH ---
PROCEDURE: X-RAY CHEST ONE VIEW, PORTABLE ([id number]) INDICATIONS: left arm numbness TECHNIQUE: One view of the chest was acquired. COMPARISON: [facility], CT, CT CHEST WO CON, 12/05/2016, 9:01. [facility], C R, XR CHEST 1VW (PORTABLE), 12/04/2016, 10:15. FINDINGS: Surgical changes and devices: There is a Port-A-Cath on the left with the tip in the area of the SVC. . Lungs and pleura: Left basilar opacity is likely atelectasis. There is a small right pleural effusio n. No pneumothorax. Mediastinum: Mediastinal contours appear normal. Heart size is normal. Bones and chest wall: No suspicious bony lesions. Overlying soft tissues appear unremarkable. IMPRESSION: 1. Left basilar atelectasis. 2. Small right pleural effusion. Dictated by: Juan Jose Lucas M.D. on 12/17/2016 at 15:56 Approved by: Juan Jose Lucas M.D. on 12/17/2016 at 15:57
[2016-12-17 16:10] LABS: INR 0.99 ratio
[2016-12-17 16:24] LABS: TROPONIN T < 0.010 ug/L (0.0-0.011)
--- NOTE | 2016-12-17 17:33 | DRSVH ---
PROCEDURE: MRI BRAIN WITHOUT CONTRAST ([id number]) INDICATIONS: Slurred speech, acute onset, h/o cancer TECHNIQUE: Noncontrast axial T1 spin echo, axial T2 fast spin echo, sagittal and axial FLAIR, coronal T2 fast sp in echo, axial gradient echo, axial diffusion and ADC through the brain. COMPARISON: None. FINDINGS: Image quality: Excellent. CSF Spaces: Basal cisterns are patent. No extra-axial fluid collections. Ventricles are normal in size and shape. Brain: No intracranial masses or hemorrhage. Velasco/white matter interface is normal. Brainstem appe ars normal. Diffusion-weighted images demonstrate no acute ischemic insult. No chronic ischemic ins ults. Normal intravascular flow voids are present. Skull and face: Calvarium has normal marrow signal. Orbits appear normal. Sinuses: Sinuses and mastoids are clear. IMPRESSION: 1. No acute intracranial findings. Specifically, no acute infarct. 2. No suspicious mass lesions to suggest intracranial metastasis. However, if further characterizatio n is warranted, MRI of the brain with contrast may be helpful. Dictated by: Lucy Martinez M.D. on 12/17/2016 at 17:28 Approved by: Lucy Martinez M.D. on 12/17/2016 at 17:31
[2016-12-17] MEDS ORDERED: Ondansetron 2 mg/mL 2 mL Inj IVPUSH ONE (18:15)
[2016-12-17 18:40] VITALS: BP 132/84; PULSE 111; RESP 16; O2SAT 96
[2016-12-25] MEDS ORDERED: OMEP40CA36 PO (10:10)
[2016-12-25] MEDS ORDERED: SENN-133 PO (10:10)
[2016-12-25] MEDS ORDERED: HYDR2TAB28 PO (10:10)
[2016-12-25] MEDS ORDERED: ONDA4TAB6 PO (10:10)
[2016-12-25] MEDS ORDERED: LORA0.5T PO (10:10)
[2016-12-25] MEDS ORDERED: MORP15TA PO (10:10)
== END 2016-12-17 18:41 | disposition home or self-care (01) ==
LOC: SED 15:09 → EDBD 15:09 → EDSEX 15:09 → EDUNIT# 15:09 → SED 18:41
DX: R47.81 Slurred speech (principal); T45.1X5A Adverse effect of antineoplastic and immunosuppressive drugs, initial encounter; X58.XXXA Exposure to other specified factors, initial encounter; Y93.89 Activity, other specified; Y99.8 Other external cause status; Y92.531 Health care provider office as the place of occurrence of the external cause; K21.9 Gastro-esophageal reflux disease without esophagitis; Z85.3 Personal history of malignant neoplasm of breast; Z90.12 Acquired absence of left breast and nipple; Z85.07 Personal history of malignant neoplasm of pancreas; Z51.11 Encounter for antineoplastic chemotherapy; Z95.828 Presence of other vascular implants and grafts
CPT/HCPCS: 36415; 70450; 70551; 71010; 80053; 84484; 85025; 85610; 85730; 93005; 96361; 96374; 99285; J2405; J7030

== ENCOUNTER 2017-01-19 00:42 | Day surgery (SDC) | payer OTHER ==
[~2017-01-19] VITALS: Ht 154.9 cm; Wt 79.8 kg
[~2017-01-19 00:42] MED LIST changes: -ACET-171 PO; -ASCO500C6 PO; -CALCIUM, MAG, ZINC PO; -CHOL200025 PO; -CYAN50008 PO; +HYDR2TAB28 PO; +LORA0.5T PO; +MORP15TA PO; -MULT-1018 PO; +OMEP40CA36 PO; +ONDA4TAB6 PO; -OXYC5TAB72 PO; -PROC-4 PO; +SENN-133 PO
[2017-01-19 08:27] VITALS: BP 115/79; PULSE 110; RESP 16; O2SAT 98
[2017-01-19] MEDS ORDERED: Heparin 5,000 Units/500 mL NS Premix IV ONE (08:47)
[2017-01-19] MEDS ORDERED: Darbepoetin Alfa (ESRD) 40 mCg/0.4 mL Inj SUBQ ONE (09:25)
[2017-01-19] MEDS ORDERED: DEXTROSE 5% IV ONE (09:35)
[2017-01-19] MEDS ORDERED: 0.9% Sodium Chloride 500 ML IV SCH (09:35)
[2017-01-19] MEDS ORDERED: CEFAZOLIN IV ONE (09:35)
[2017-01-19] MEDS ORDERED: CeFAZolin Inj 1 GM in IV Premix 1 EACH IV SCH (09:40)
[2017-01-19] MEDS: CeFAZolin Inj 1 GM in IV Premix 1 EACH IV SCH ×2 (10:16→16:36)
--- NOTE | 2017-01-19 10:17 | NUR ---
Admitted today for a pluer vac placement for abdominal fluid. Here today with her family and has been assessed last week by hospice. Hospice staff/RN will be coming later today with a bed and equipment for pleur vac.
[2017-01-19] MEDS ORDERED: Ondansetron 2 mg/mL 2 mL Inj IVPUSH ONE (10:20)
[2017-01-19] MEDS ORDERED: fentaNYL-PF 50 mCg/mL 2 mL Inj ONE (10:32)
[2017-01-19 11:10] VITALS: BP 108/74; PULSE 98; RESP 16; O2SAT 97
--- NOTE | 2017-01-19 11:14 | DRSVH ---
PROCEDURE: 1. Pleurx catheter placement for ascites. 2. Conscious sedation times 38 minutes. 3. Sonographic guidance for peritoneal space access. INDICATIONS: Refractory ascites COMPARISON: None. TECHNIQUE: Informed, written consent from the patient was obtained prior to the procedure. Patient wa s brought to the angiography suite, and conscious sedation was administered intravenously by long-term staff, while continuous cardiorespiratory monitoring was performed. Maximal sterile barrier t echnique, hand hygiene, skin preparation, and sterile ultrasound technique was followed. A mask, ster ile gown, sterile gloves, a large sterile sheet, hand hygiene, and 2% chlorhexidine or iodine was uti lized for skin antisepsis. The anterior abdominal wall was prepped and draped sterilely, and the skin and subcutaneous tissues overlying the peritoneal cavity were infused with lidocaine. The peritoneal space was accessed with an 18 gauge angiocath, through which an 035 wire was advanced. The subcutane ous tissues of the anterior abdominal wall were infused with lidocaine, through which a Pleurx cathet er was advanced. The peritoneal access site was sequentially dilated over the 035 wire, followed by a dvancement of the pleurx catheter into the peritoneal space. The catheter was then fastened to the sk in surface. 3.5 liters of fluid were removed. FLUOROSCOPY TIME: 0.1 minutes FINDINGS: Sonographic imaging demonstrates moderate ascites. Following Pleurx catheter placement, th e catheter is within the peritoneal space. IMPRESSION: Pleurx catheter for treatment of ascites. Dictated by: Lan Iniguez M.D. on 01/19/2017 at 11:10 Approved by: Lan Iniguez M.D. on 01/19/2017 at 11:13
[2017-01-19 11:30] VITALS: BP 108/66; PULSE 98; RESP 16; O2SAT 97
--- NOTE | 2017-01-19 11:47 | NUR ---
Returned to [facility] at 1110 - OK for D/C from [facility] with family at 1210. Total fluid drainage from ascites filled abdomen in clinical laboratory director was 3500cc. Pt is in no pain currently - answering questions appropriately, taking in sips of orange juice and ice chips. Family at bedside and understand plan of care.
[2017-01-19 12:00] VITALS: BP 112/95; PULSE 94; RESP 16; O2SAT 97
--- NOTE | 2017-01-19 12:00 | NUR ---
D/C note - Pleura-X drain is secured with a stay fix dressing - noted some light bleeding prior to discharge - dressing changed, and extra bio-occlusive and 4x4's given to patient and patient's family. Pt is now on Hospice, with planned Hospice visit later today with a bed being delivered to her home today, per her .
[2017-01-19 12:15] VITALS: BP 108/67; PULSE 93; RESP 16; O2SAT 97
[2017-01-19 12:30] VITALS: BP 113/67; PULSE 91; RESP 16; O2SAT 97
== END 2017-01-19 23:59 | disposition home or self-care (01) ==
LOC: SOUO 00:42
PROVIDERS: ATTEND Radiology Diagnostic Radiology
DX: R18.8 Other ascites (principal); C25.9 Malignant neoplasm of pancreas, unspecified; G47.33 Obstructive sleep apnea (adult) (pediatric)
CPT/HCPCS: 32550; 75989; 99152; C1729; C1769; J1644; J2250; J2405; J3010; J7040